=== PATIENT | male | born 2000 | race Caucasian/White ===

== ENCOUNTER → 2019-06-23 | Outpatient (CLI) | payer BC ==
--- NOTE | 2019-06-23 13:41 | CT ---
EXAMINATION TYPE: CT iac wo con DATE OF EXAM: 06/23/2019 COMPARISON: None HISTORY: Hearing loss CT DLP: 150.00 mGycm. Automated Exposure Control for Dose Reduction was Utilized. TECHNIQUE: CT scan of internal auditory canal is performed without contrast, thin cut axial images ar e obtained, coronal reformatted images are also reviewed. FINDINGS: The external auditory canals are patent bilaterally. There is fluid within the inferior rig ht mastoid air cells. Left mastoid air cells are patent. The middle ear ossicles are symmetric and un remarkable. No suspicious masses identified.. The scutum is preserved bilaterally. The cochlea and the semicircular canals are symmetric and unremarkable. Vestibular aqueduct and internal carotid can al appear unremarkable. Temporomandibular joints are maintained bilaterally. Visualized paranasal sinuses are grossly clear. Visualized portion brain parenchyma is felt within normal limits. Orbits appear unremarkable as visu alized. IMPRESSION: 1 some mild inferior lateral right mastoiditis may be present.
== END ==
LOC: RADCTMAIN 13:15
PROVIDERS: ATTEND Otolaryngology
DX: H91.90 Unspecified hearing loss, unspecified ear (principal); H71.90 Unspecified cholesteatoma, unspecified ear; H70.90 Unspecified mastoiditis, unspecified ear; R22.0 Localized swelling, mass and lump, head
CPT/HCPCS: 70480